=== PATIENT | female | born 1970 | race Caucasian/White ===

== ENCOUNTER 2016-12-21 07:01 | Emergency (ER) | payer OTHER ==
[2016-12-21 07:14] VITALS: BP 138/97
--- NOTE | 2016-12-21 07:22 | UC ---
Respiratory Complaint HPI - History of Current Complaint Chief Complaint: UCGeneralIllness Stated Complaint: COUGH Time Seen by Provider: 12/21/16 07:15 Hx Last Menstrual Period: 11/30/16 Onset/Duration: Gradual Onset, Lasting Days - 4, Worse Since - yesterday with coughing and laryngitis. Severity Initially: Mild Severity Currently: Moderate Character: Cough: Nonproductive Aggravating Factors: Allergens Alleviating Factors: Nothing Associated Signs And Symptoms: Positive: Dyspnea, Fever, URI, Nasal Congestion, Hoarseness. Negative: Chills, Sinus Discomfort Related History: Seasonal Allergies - Risk Factors Cardiac Risk Factors: Negative - Allergies/Home Medications Allergies/Adverse Reactions: Allergies Allergy/AdvReac Type Severity Reaction Status Date / Time No Known Allergies Allergy Verified 12/21/16 07:09 PMH/Surg Hx/FS Hx/Imm Hx Previously Healthy: Yes Other History Of: Negative For: HIV - Surgical History Surgical History: Yes Surgery Procedure, Year, and Place: BACK SX. 2 C-SECT - Family History Known Family History: Negative: Cardiac Disease, Hypertension, Diabetes - Social History Occupation: Employed Full-time Lives: With Family Alcohol Use: Weekly Substance Use Type: None Smoking Status (MU): Never Smoked Tobacco Have You Smoked in the Last Year: No Review of Systems Respiratory: Shortness Of Breath, Cough All Other Systems Reviewed And Are Negative: Yes Physical Exam Triage Information Reviewed: Yes Appearance: Well-Appearing, No Pain Distress, Well-Nourished Vital Signs: Initial Vital Signs Temp 98.3 F 12/21/16 07:10 Pulse 73 12/21/16 07:10 Resp 16 12/21/16 07:10 BP 138/97 12/21/16 07:10 Pulse Ox 100 12/21/16 07:10 Vital Signs Reviewed: Yes Eyes: Positive: Conjunctiva Clear ENT: Positive: Pharynx normal, TMs normal Neck exam: Normal Respiratory: Positive: Wheezing - expiratory wheeze with coughing Cardiovascular Exam: Normal Musculoskeletal Exam: Normal Neurological Exam: Normal Psychological Exam: Normal Skin Exam: Normal UC Diagnostic Evaluation - Laboratory O2 Sat by Pulse Oximetry: 100 Respiratory Course/Dx - Differential Dx/Diagnosis Differential Diagnosis/HQI/PQRI: Asthma, Lower Resp Infection, Sinusitis Provider Diagnoses: Acute URI. Acute bronchospasm Discharge - Discharge Plan Condition: Stable Disposition: HOME Prescriptions: predniSONE TAB* [Deltasone TAB*] 20 mg PO DAILY #18 tab Patient Education Materials: Upper Respiratory Infection (ED), Bronchospasm (ED ), Prednisone (By mouth)
== END 2016-12-21 07:35 | disposition home or self-care (01) ==
LOC: UCCORT 07:01
DX: J06.9 Acute upper respiratory infection, unspecified (principal); J98.01 Acute bronchospasm
CPT/HCPCS: 99202; G0463

== ENCOUNTER 2019-07-28 07:00 | Emergency (ER) | payer OTHER ==
[2019-07-28 07:18] VITALS: BP 126/68
--- NOTE | 2019-07-28 07:29 | UC ---
General HPI - HPI Summary HPI Summary: States yesterday she started with cough, fever, muscle aches and low back pain. Appetite is decreased as well. No N/v/d. No CP or SOB. No rash. Her boss recently had a URI. Took ibuprofen at 3 am. No urinary symptoms. Has used an inhaler in her 20's when she had allergies and was exercising. Meds; Reviewed. - History of Current Complaint Chief Complaint: UCRespiratory Stated Complaint: COUGH BACK PAIN Time Seen by Provider: 07/28/19 07:17 Hx Last Menstrual Period: 3 weeks Pain Intensity: 7 - Allergy/Home Medications Allergies/Adverse Reactions: Allergies Allergy/AdvReac Type Severity Reaction Status Date / Time No Known Allergies Allergy Verified 07/28/19 07:17 Home Medications: Home Medications Guaifenesin/Dextromethorphan [Mucinex Dm ER 600-30 mg Tablet] 1 each PO BID [History Confirmed 07/28/19] Ibuprofen TAB* [Motrin TAB* 400 MG] 400 mg PO Q4H PRN 07/28/19 [History Confirmed 07/28/19] PMH/Surg Hx/FS Hx/Imm Hx Previously Healthy: Yes Other History Of: Negative For: HIV - Surgical History Surgical History: Yes Surgery Procedure, Year, and Place: Low BACK SX 2001 with titanium rods. 2 C- SECT - Family History Known Family History: Negative: Cardiac Disease, Hypertension, Diabetes - Social History Alcohol Use: Occasionally Substance Use Type: None Smoking Status (MU): Never Smoked Tobacco Have You Smoked in the Last Year: No Review of Systems All Other Systems Reviewed And Are Negative: Yes Constitutional: Positive: Fever, Chills ENT: Positive: Negative Respiratory: Positive: Cough Cardiovascular: Positive: Negative Gastrointestinal: Positive: Negative Physical Exam Triage Information Reviewed: Yes Appearance: Other: - mildly ill appearing Vital Signs: Initial Vital Signs Temp 98.9 F 07/28/19 07:09 Pulse 73 07/28/19 07:09 Resp 20 07/28/19 07:09 BP 126/68 07/28/19 07:09 Pulse Ox 99 07/28/19 07:09 Eyes: Positive: Conjunctiva Clear ENT: Positive: Pharyngeal erythema Neck: Positive: Supple, Nontender Respiratory: Positive: Lungs clear, Normal breath sounds, No accessory muscle use Cardiovascular: Positive: RRR, No Murmur Course/Dx - Course Course Of Treatment: This is a 48 yr old with Cough, fevers and muscle aches Rapid Flu:Positive flu A Nontoxic, no respiratory distress Plan Start Tamiflu as prescribed Albuterol inhaler with spacer 2 puffs every 4 hours as needed for cough/wheeze Rest, fluids, ibuprofen as needed for pain/fever - take as directed Continue with Mucinex as directed If symptoms persist or worsen over the next 2-3 days, recommend follow up with your PCP or return to urgent care - Diagnoses Provider Diagnosis: Influenza A Discharge ED - Sign-Out/Discharge Documenting (check all that apply): Patient Departure All imaging exams completed and their final reports reviewed: No Studies - Discharge Plan Condition: Fair Disposition: HOME Prescriptions: Albuterol HFA INHALER* [Ventolin HFA Inhaler*] 2 puff INH Q4H PRN #1 mdi PRN Reason: Cough Oseltamivir CAP* [Tamiflu CAP*] 75 mg PO BID #10 cap Spacer/Holding Chamber (NF) [Easivent CHAMBER (NF)] 1 applic INH Q4HR PRN #1 device PRN Reason: Cough Patient Education Materials: Influenza (ED) Referrals: Quiana Lerner MD [Primary Care Provider] - Additional Instructions: Start Tamiflu as prescribed Albuterol inhaler with spacer 2 puffs every 4 hours as needed for cough/wheeze Rest, fluids, ibuprofen as needed for pain/fever - take as directed Continue with Mucinex as directed If symptoms persist or worsen over the next 2-3 days, recommend follow up with your PCP or return to urgent care - Billing Disposition and Condition Condition: FAIR Disposition: Home
[2019-07-28 07:32] LABS: Influenza A Molecular POSITIVE (Negative)
== END 2019-07-28 07:41 | disposition home or self-care (01) ==
LOC: UCCORT 07:00
DX: J10.1 Influenza due to other identified influenza virus with other respiratory manifestations (principal)
CPT/HCPCS: 99212; G0463